=== PATIENT | female | born 1945 | race American Indian/Alaskan Native ===

== ENCOUNTER 2018-11-05 21:47 | Emergency (ER) | payer MEDICARE ==
[2018-11-05 22:02] VITALS: BP 156/54
--- NOTE | 2018-11-05 22:03 | Emergency Department Report ---
Blank Doc - Documentation Documentation: 73 y o female presents with to ed cc of right foot pain x trip onher pants today xr ordered ACC eval
--- NOTE | 2018-11-05 23:42 | XRay Report ---
PROCEDURE: XR FOOT 2V RT TECHNIQUE: Right foot radiographs, AP and lateral views. HISTORY: pain COMPARISONS: None . FINDINGS: Fracture (s) and/or Dislocation(s): None . Alignment: Normal . Joint space(s): Normal . Soft tissues: Normal . Bone mineralization: Normal . Foreign bodies: None . Calcaneal spurring: None . IMPRESSION: Normal Examination . This document is electronically signed by Garth Martin MD., Nov 05 2018 11:41:12 PM ET
[2018-11-06] MEDS ORDERED: TYLENOL PO ONE (02:59)
--- NOTE | 2018-11-06 03:01 | Emergency Department Report ---
ED Lower Extremity HPI - General Chief Complaint: Extremity Injury, Lower Stated Complaint: RIGHT BIG TOE INJURY Time Seen by Provider: 11/05/18 21:57 Source: patient Mode of arrival: Wheelchair Limitations: No Limitations - History of Present Illness Initial Comments: 73 y o female presents with to ed cc of right foot pain x trip onher pants today xr ordered , ACC eval pain is 7/10 exacerbated by ambulation and palpation ther is no deformity no bleeding no no numbness or tingling. MD Complaint: foot injury, other (right great toe ) Onset/Timin -: hour(s) Injury: Toes: Right Type of Injury: hyperextension Place: home Severity: moderate Severity scale (0 -10): 3 Improves With: rest Worsens With: weight bearing, movement, palpation Context: other ("cought my toe in my pants") Associated Symptoms: swelling, able to partially bear weight. denies: snap/pop sensation, numbness, tingling - Related Data Previous Rx's Medication Instructions Recorded Last Taken Type HYDROcodone/APAP 5-325 [Lyburn 1 each PO Q6HR PRN #12 tablet 06/02/18 Unknown Rx 5/325] Ibuprofen [Motrin] 800 mg PO Q8HR PRN #12 tablet 06/02/18 Unknown Rx cephALEXin [Keflex] 500 mg PO Q8HR 7 Days #21 cap 06/02/18 Unknown Rx Acetaminophen [Acetaminophen TAB] 1,000 mg PO Q6HR #30 tablet 11/06/18 Unknown Rx Cyclobenzaprine HCl [Flexeril 5 MG 5 mg PO BID #20 tab 11/06/18 Unknown Rx TAB] Allergies Allergy/AdvReac Type Severity Reaction Status Date / Time No Known Allergies Allergy Verified 06/02/18 15:39 ED Review of Systems ROS: Stated complaint: RIGHT BIG TOE INJURY Other details as noted in HPI Constitutional: denies: chills, fever Eyes: as per HPI ENT: denies: ear pain, throat pain Respiratory: denies: cough, shortness of breath, wheezing Cardiovascular: denies: chest pain, palpitations Endocrine: no symptoms reported Gastrointestinal: denies: abdominal pain, nausea, diarrhea Genitourinary: denies: urgency, dysuria, discharge Musculoskeletal: joint swelling, arthralgia, myalgia, other (right great toe ). denies: back pain Skin: denies: rash, lesions Neurological: denies: headache, weakness, numbness, paresthesias, confusion, abnormal gait, vertigo Psychiatric: denies: anxiety, depression, auditory hallucinations, visual hallucinations, homicidal thoughts, suicidal thoughts Hematological/Lymphatic: denies: easy bleeding, easy bruising ED Past Medical Hx - Past Medical History Previous Medical History?: No - Surgical History Past Surgical History?: No - Social History Smoking Status: Never Smoker Substance Use Type: None - Medications Home Medications: Home Medications Medication Instructions Recorded Confirmed Last Taken Type HYDROcodone/APAP 5-325 [[place]burn 1 each PO Q6HR PRN #12 tablet 06/02/18 Unknown Rx 5/325] Ibuprofen [Motrin] 800 mg PO Q8HR PRN #12 tablet 06/02/18 Unknown Rx cephALEXin [Keflex] 500 mg PO Q8HR 7 Days #21 cap 06/02/18 Unknown Rx Acetaminophen [Acetaminophen TAB] 1,000 mg PO Q6HR #30 tablet 11/06/18 Unknown Rx Cyclobenzaprine HCl [Flexeril 5 MG 5 mg PO BID #20 tab 11/06/18 Unknown Rx TAB] ED Physical Exam - General Limitations: No Limitations General appearance: alert, in no apparent distress - Head Head exam: Present: atraumatic, normocephalic - Eye Eye exam: Present: normal appearance, PERRL, EOMI Pupils: Present: normal accommodation - ENT ENT exam: Present: mucous membranes moist - Neck Neck exam: Present: normal inspection, tenderness, meningismus, full ROM. Absent: thyromegaly - Respiratory Respiratory exam: Present: normal lung sounds bilaterally. Absent: respiratory distress, wheezes, stridor, chest wall tenderness - Cardiovascular Cardiovascular Exam: Present: regular rate, normal rhythm, normal heart sounds. Absent: systolic murmur, diastolic murmur - GI/Abdominal GI/Abdominal exam: Present: soft. Absent: distended, tenderness, guarding, rebound, bruit, hernia - Rectal Rectal exam: Present: deferred - External exam: Present: normal external exam, swelling (right g). Absent: erythema, lesions, lacerations, ecchymosis, bleeding - Extremities Exam Extremities exam: Present: normal inspection, full ROM, tenderness, normal capillary refill, pedal edema, joint swelling, other. Absent: calf tenderness ED Course Vital Signs 11/05/18 21:54 Temperature 98.1 F Pulse Rate 68 Respiratory 14 Rate Blood Pressure 156/54 O2 Sat by Pulse 99 Oximetry ED Lower Extremity MDM - Radiology Data Radiology results: report reviewed, image reviewed Ordering Physician: CLARISSE CONRAD Date of Service: 11/05/18 Procedure(s): XR foot 2V RT Accession Number(s): [id number] cc: CLARISSE CONRAD Fluoro Time In Minutes: PROCEDURE: XR FOOT 2V RT TECHNIQUE: Right foot radiographs, AP and lateral views. HISTORY: pain COMPARISONS: None . FINDINGS: Fracture (s) and/or Dislocation(s): None . Alignment: Normal . Joint space(s): Normal . Soft tissues: Normal . Bone mineralization: Normal . Foreign bodies: None . Calcaneal spurring: None . IMPRESSION: Normal Examination . This document is electronically signed by Garth Martin MD., Nov 05 2018 11:41:12 PM ET Transcribed By: [facility] Dictated By: GARTH MARTIN Electronically Authenticated By: GARTH MARTIN Signed Date/Time: 11/05/182341 DD/ 44 TD/TT: 11/05/182254 - Medical Decision Making Patient is a 73-year-old -[place] female ,Presents for right great toe pain status post "I caught it on casting in her past leg, pt will follw up with orhtorpeidig Critical care attestation.: If time is entered above; I have spent that time in minutes in the direct care of this critically ill patient, excluding procedure time. ED Disposition Clinical Impression: Sprain of toe, third, left Qualifiers: Encounter type: initial encounter Qualified Code(s): S93.505A - Unspecified sprain of left lesser toe(s), initial encounter Disposition: DC-01 TO HOME OR SELFCARE Is pt being admited?: No Does the pt Need Aspirin: No Condition: Stable Prescriptions: Acetaminophen [Acetaminophen TAB] 1,000 mg PO Q6HR #30 tablet Cyclobenzaprine HCl [Flexeril 5 MG TAB] 5 mg PO BID #20 tab Referrals: SMITH SCHAEFFER MD [Staff Physician] - 3-5 Days Forms: Discharge Signature Page Time of Disposition: 03:24
== END 2018-11-06 03:40 | disposition home or self-care (01) ==
LOC: ED 21:47
DX: S93.501A Unspecified sprain of right great toe, initial encounter (principal); W01.198A Fall on same level from slipping, tripping and stumbling with subsequent striking against other object, initial encounter; Y93.89 Activity, other specified; Y92.488 Other paved roadways as the place of occurrence of the external cause; Y99.8 Other external cause status
CPT/HCPCS: 99283